=== PATIENT | female | born 1945 | race Caucasian/White ===

== ENCOUNTER 2025-02-17 09:46 | Outpatient (OUT) | payer MEDICARE, OTHER, SELFPAY ==
--- OUTSIDE RECORDS SUMMARY | 2025-02-17 09:48 | XMS_ITS | Clinical Summary ---
Author Organization [facility] Address [address] [place] [address] Care Team Providers Care Production Recovery Operator Name Role Phone Unavailable Primary Care Provider Unavailabl e Social History Tobacco Use Types Packs/Day Years Used Date Smoking Tobacco: Never Assessed [place] Safety & Environment Answer Date Rec orded Fear of Current or Ex-Partner Not on file Emotionally Abused Not on file 07/26/2023 Physically Abused Not on file 07/26/2023 Sexually Abused Not on file 07/26/2023 Physically or Sexually Abused Not on file Comments Unknown Sex and Gender Information Value Date Recorded Sex Assigned at Not on file Legal Sex Female 10:33 PM EDT Gender Identity Not on file Sexual Orientation Not on file Plan of Treatment Not on file
--- OUTSIDE RECORDS SUMMARY | 2025-02-17 09:48 | XMS_ITS | Encounter Summary ---
Author Organization [facility] Address [address] [place] [address] Care Team Providers Care Varnisher Plasticoater Name Role Phone Unavailable Primary Care Provider Unavailabl e Encounter Details Date Type Department Care Team (Late st Contact Info) Description 05/05/2024 Orders Only [facility] [address] JOANA D [address] [phone] Unallocated, Noms Provider[place] [address] Social History Tobacco Use Types Packs/Day Years Used Date Smoking Tobacco: Never Assessed Comments Unknown Sex and Gender Information Value Date Recorded Sex Assigned at Not on file Legal Sex Female 7:18 PM EDT Gender Identity Not on file Sexual Orientation Not on file documented as of this encounter Plan of Treatment Not on file documented as of this encounter Procedures Procedure Name Priority Date/Time Associated Diagnosis Comments MAMM SCREENING W CAD Routine 10/04/2022 10:49 AM EDT documented in this encounter Results * MAMM SCREENING W CAD (10/04/2022 10:49 AM EDT) Anatomical Region Laterality Modality Radiographic Isabell ging us Noms Provider Unallocated MD BLOCK XR PROCEDURES F inal Result documented in this encounter Visit Diagnoses Not on filedocumented in this encounter
--- OUTSIDE RECORDS SUMMARY | 2025-02-17 09:48 | XMS_ITS | Clinical Summary ---
Author Organization [facility] Address [address] [place] [address] Care Team Providers Care Gas Cutter Name Role Phone Unavailable Primary Care Provider Unavailabl e Family History Medical History Relation Name Comments Acute myocardial infarction Father Alzheimer's disease Father Acute myocardial infarction Mother Relation Name Status Comments Father Mother Social History Tobacco Use Types Packs/Day Years Used Date Smoking Tobacco: Never Assessed Comments Unknown Sex and Gender Information Value Date Recorded Sex Assigned at Not on file Legal Sex Female 7:18 PM EDT Gender Identity Not on file Sexual Orientation Not on file Last Filed Vital Signs Vital Sign Reading Time Taken Comments Blood Pressure 148/76 12/17/2017 12:00 PM EDT Pulse - - Temperature - - Respiratory Rate - - Oxygen Saturation - - Inhaled Oxygen Concentration - - Weight 83.9 kg (185 lb) 12/17/2017 12:00 PM EDT Height 157.5 cm (5' 2 ) 12/17/2017 12:00 PM EDT Body Mass Index 33.84 12/17/2017 12:00 PM EDT Plan of Treatment Not on file
--- OUTSIDE RECORDS SUMMARY | 2025-02-17 09:48 | XMS_ITS | Encounter Summary ---
Author Organization [facility] Address [address], [address] [place] [address] Care Team Providers Care Cook Frozen Dessert Name Role Phone Carlton Franco Primary Care Provider [phone] Encounter Details Date Type Department Care Team (Late st Contact Info) Description 07/25/2024 Orders Only [facility] [address] [place] [address] Provider, MD Brissa Social History Tobacco Use Types Packs/Day Years Used Date Smoking Tobacco: Never Smokeless Tobacco: Never Alcohol Use Standard Drinks/Week Comments Never 0 (1 standard drink = 0.6 oz pur e alcohol) [facility] Utilities Answer Date Recorded In the past 12 months has e electric, gas, oil, or water company threatened to shut off services in your home? No 07/22/2024 AUDIT-C Answer Date Recorded Q1: How often do you have a drink containing alcohol? Never 04/22/2024 Q2: How many drinks containi ng alcohol do you have on a typical day when you are drinking? Patient does not drink Q3: How often do you have si x or more drinks on one occasion? Never 04/22/2024 Overall Financial Resource Strain (CARDIA) Answe r Date Recorded How hard is it for you to pa y for the very basics like food, housing, medical care, and heating? Not hard at all 04/30/2023 PHQ-2 Answer Date Recorded PHQ-9 Total Score 6 07/22/2024 Exercise Vital Sign Answer Date Recorde d On average, how many days pe r week do you engage in moderate to strenuous exercise (like a brisk walk)? 7 days 04/22/2024 On average, how many minutes do you engage in exercise at this level? 30 min 04/22/2024 Hunger Vital Sign Answer Date Recorded Within the past 12 months, y ou worried that your food would run out before you got the money to buy more. Never true 07/22/19 25 Within the past 12 months, t he food you bought just didn't last and you didn't have money to get more. Never true 07/22/2024 PRAPARE - Transportation Answer Date Re corded In the past 12 months, has l ack of transportation kept you from medical appointments or from getting medications? No 07/05 In the past 12 months, has l ack of transportation kept you from meetings, work, or from getting things needed for daily living? No 07/22/2024 Housing Stability Vital Sign Answer Brandan e Recorded Unable to Pay for Housing in the Last Year Not o n file 04/30/2023 Number of Places Lived in the Last Year Not on f ile 04/30/2023 In the last 12 months, was t here a time when you did not have a steady place to sleep or slept in a senior care (including now)? No 04/30/2023 Housing Stability Vital Sign Answer Brandan e Recorded In the last 12 months, was t here a time when you were not able to pay the mortgage or rent on time? No 07/22/2024 In the past 12 months, how m any times have you moved where you were living? 0 07/22/2024 At any time in the past 12 m [facility], were you homeless or living in a senior care (including now)? No 07/22/2024 Food Insecurity Answer Date Recorded Within the past 12 months, y ou worried that your food would run out before you got the money to buy more. 1 07/22/2024 Within the past 12 months, t he food you bought just didn't last and you didn't have money to get more. 1 07/22/2024 Comments Unknown Sex and Gender Information Value Date Recorded Sex Assigned at Not on file Legal Sex Female 11:57 PM EST Gender Identity Not on file Sexual Orientation Not on file documented as of this encounter Plan of Treatment Upcoming Encounters Date Type Department Care Team (Late st Contact Info) Description 04/21/2025 2:30 PM EST Office Visit [facility] [address] [place] [address] Carlton Franco, [address] [place] [address] 3 mo f/u documented as of this encounter Procedures Procedure Name Priority Date/Time Associated Diagnosis Comments HM DEXA SCAN Routine 04/19/2018 2:36 PM EST documented in this encounter Results * HM DEXA SCAN (04/19/2018 2:36 PM EST) Anatomical Region Laterality Modality Other Impressions 04/19/2018 2:36 PM EST Result Details Return to Results Print RAD BD Bone Density DEXA Date Requested Date Observed Status Reported/Status Changed Priority Result Sizing Machine And Drier Operator 04/19/2018 12:51 PM 04/19/2018 12:51 PM Final 04/20/2018 2:07 PM Routine MD Pierre Muñoz Facility: [facility] ([facility]) Report ID: [id number] Specimen Source: Rad Type Admitting Provider: Carlton FRANCO Requested Date: 04/19/2018 12:51 PM Body Site: NA Attending Provider: Carlton FRANCO Ordering Provider: Carlton FRANCO Patient Class: Ambulatory BD Bone Density DEXA Exam Date/Time: 04/19/2018 13:03 EST Reason for Exam: OSETOPOROSIS Report IMPRESSION: OSTEOPENIA. CLINICAL HISTORY: Screening for osteoporosis. COMPARISON: NONE. COMMENTS: The lumbar spine and both hips were scanned. The mean bone mineral density from L1 to L4 is 1.065 g/cm2 and this value is - 1.0 standard of deviation below the standard reference value for a young adult. Bone mineral density of the left femoral neck is 0.852 g/cm2 and this value is - 1.3 standard of deviation below the standard reference value. Bone mineral density of the right femoral neck is 0.848 g/cm2 and this value is -1.4 standard of deviation below the standard reference value. These values meet WHO criteria for osteopenia. FINAL REPORT Dictated: 04/20/2018 2:04 pm Pierre Muñoz MD Signed (Electronic Signature): 04/20/2018 2:04 pm Signed by: Pierre Muñoz MD Transcribed by: DONAVON Technologist: JUDSON Performed By: NELDA us Historical Provider HEALTH MAINTENANCE Edited Result - Final documented in this encounter Visit Diagnoses Not on filedocumented in this encounter Additional Health Concerns Assessment Noted Time A fall risk assessment has been complete d for the patient 04/22/2024 2:25 PM EST documented as of this encounter Care Teams Cook Frozen Dessert Relationship Specialty Start Date End Date Carlton Franco DO [address] [place] [address] PCP - General Family Medicine 04/05/23 documented as of this encounter
--- OUTSIDE RECORDS SUMMARY | 2025-02-17 09:48 | XMS_ITS | Clinical Summary ---
Author Organization [facility] Address [address], [address] [place] [address] Care Team Providers Care Transportation Maintenance Worker Name Role Phone Carlton Franco DO Primary Care Provider [phone] Allergies Active Allergy Reactions Criticality Noted Date Comments Iodine 04/30/2023 Other reaction(s): Vomiting Latex 04/30/2023 Other reaction(s): Unknown Meperidine Hcl Shortness Of Breath High 04/30/2023 Semaglutide Other (See Comments) 11/01/2023 Medications escitalopram (LEXAPRO) 20 MG tablet TAKE 1 TABLET BY MOUTH EVERYDAY 3 Active ezetimibe (ZETIA) 10 MG tablet Take 0.5 tablets by mouth daily 1 Active pantoprazole (PROTONIX) 40 MG tablet Take 1 tablet by mouth 9 Active levothyroxine (SYNTHROID) 25 MCG tablet Take 1 tablet by mouth Daily 3 Active sacubitril-wade sartan (ENTRESTO) 24-26 MG per tablet Take 1 tablet by mouth 2 times daily Active SITagliptin (JANUVIA) 100 MG tablet Take 1 tablet by mouth daily Active insulin lispro (HUMALOG) 100 UNIT/ML SOLN injection vial Inject 3 Units into the skin as needed for High Blood Sugar (For blood sugars over 200) Active TRUE METRIX BLOOD GLUCOSE TEST strip USE DIRECTED TO TEST BLOOD SUGAR 4 Active IBGARD 90 MG CPCR Take 2 capsules by mouth 2 times daily 4 Active montelukast (SINGULAIR) 10 MG tablet Take 1 tablet by mouth daily 4 Active famotidine (PEPCID) 20 MG tablet Take 1 tablet by mouth nightly 4 Active FIASP FLEXTOUCH 100 UNIT/ML SOPN INJECT 3X'S DAILY BEFORE MEALS, 200-250 3UNITS 251-300 5UNITS 301-350 7UNITS 351-400 10U 4 Active Insulin Aspart FlexPen 100 UNIT/ML SOPN PLEASE SEE ATTACHED FOR DETAILED DIRECTIONS 5 Active metoclopramide (REGLAN) 5 MG tablet TAKE 1 TABLET BY MOUTH 3 TIMES A DAY BEFORE MEALS NEEDED FOR NAUSEA 5 Active acarbose (PRECOSE) 100 MG tablet 5 Active ALPRAZolam (XANAX) 0.5 MG tablet Take 1 tablet by mouth 2 times daily. 5 Active KERENDIA 10 MG TABS Take 1 tablet by mouth daily 5 Active RYBELSUS 3 MG TABS TAKE 1 TABLET BY MOUTH IN THE MORNING BEFORE A MEAL 4 01/29/20 25 Discontinu ed(LIST CLEANUP) ALPRAZolam (XANAX) 0.5 MG tabletIndicati ons:Situationa l anxiety Take 1 tablet by mouth in the morning and at bedtime for 90 days. Max Daily Amount: 1 mg 60 tablet 2 5 01/20/20 25 Active Problems Problem Noted Date Diagnosed Date Situational anxiety 07/31/2023 Type 2 diabetes mellitus 04/30/2023 023 Overview (04/30/2023): linked DM with HLD per outpatient CDI policy. 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 added per outpatient CDI policy. Acute situational disturbance 04/30/2023 Encounters Date Type Department Care Team Description 01/28/2025 1:30 PM EDT Office Visit [facility] [address] [place] [address] Carlton Franco, Situational anxiety (Primary Dx); Mild major depression from Last 3 Months Immunizations Immunization Administration Dates Next Due Pneumococcal, PCV-13, PREVNAR 13, (age 6w+), IM, 0.5mL 04/04/2016 Social History Tobacco Use Types Packs/Day Years Used Date Smoking Tobacco: Never Smokeless Tobacco: Never Tobacco Cessation:Counseling Given: No Alcohol Use Standard Drinks/Week Comments Never 0 (1 standard drink = 0.6 oz pur e alcohol) [facility] Utilities Answer Date Recorded In the past 12 months has e [employer], gas, oil, or water company threatened to [...] place to sleep or slept in a alf (including now)? No 04/30/2023 Housing Stability Vital Sign Answer Brandan e Recorded In the last 12 months, was t here a time when you were not able to pay the mortgage or rent on time? No 07/22/2024 In the past 12 months, how m any times have you moved where you were living? 0 07/22/2024 At any time in the past 12 m [facility], were you homeless or living in a alf (including now)? No 07/22/2024 AUDIT-C Answer Date Recorded Q1: How often do you have a drink containing alcohol? Never 01/28/2025 Q2: How many drinks containi ng alcohol do you have on a typical day when you are drinking? Patient does not drink Q3: How often do you have si x or more drinks on one occasion? Never 01/28/2025 Food Insecurity Answer Date Recorded Within the [...] Sign Reading Time Taken Comments Blood Pressure 124/76 01/28/2025 1:38 PM EDT Pulse 90 01/28/2025 1:38 PM EDT Temperature 36.2 C (97.2 F) 01/28/2025 1:38 PM EDT Respiratory Rate - - Oxygen Saturation 98% 01/28/2025 1:38 PM EDT Inhaled Oxygen Concentration - - Weight 75.9 kg (167 lb 6.4 oz) 01/28/2025 1:38 P M EDT Height 157.5 cm (5' 2 ) 01/28/2025 1:38 PM EDT Body Mass Index 30.62 01/28/2025 1:38 PM EDT Plan of Treatment Upcoming Encounters Date Type Department Care Team (Late st Contact Info) Description 04/21/2025 2:30 PM EST Office Visit [facility] [address] [place] [address] Carlton Franco, [address] [place] [address] 3 mo f/u Health Maintenance Due Date Last Done Comments Diabetic Alb to Cr ratio (uACR) test 12/03/1965 GFR test (Diabetes, CKD 3-4, OR last GFR 15-59) 12/03/1965 Hepatitis C screen 12/03/1965 DTaP/Tdap/Td vaccine (1 - Tdap) 12/03/1966 Shingles vaccine (1 of 2) 12/03/1997 Pneumococcal 50+ years Vaccine (2 of 2 - PPSV23, PCV20, or PCV21) 05/30/2016 04/04/2016 Respiratory Syncytial Virus (RSV) or age 60 yrs+ (1 - 1-dose 75+ series) 12/03/2022 Breast cancer screen 10/04/2024 10/04/2022 Flu vaccine (#1) 01/02/2025 COVID-19 Vaccine (1 - 2023-2 5 season) 2025 Annual Wellness Visit (Medicare) 04/23/2025 04/22/2024 Depression Monitoring 07/22/2025 07/22/2024 , 07/22/2024 DEXA (modify frequency per FRAX score) Completed 04/19/2018 A1C test (Diabetic or Prediabetic) Discontinued 12/15/2022, 12/15/2022, 06/13/2022 Lipids Discontinued 06/20/2023 Depression Screen Discontinued 07/22/2024, 07/22/2024 Hepatitis A vaccine Aged Out No longe r eligible based on patient's age to complete this topic Hepatitis B vaccine Aged Out No longe r eligible based on patient's age to complete this topic Hib vaccine Aged Out No longer eligi ble based on patient's age to complete this topic Meningococcal (ACWY) vaccine Aged Out No longer eligible based on patient's age to complete this topic Meningococcal B vaccine Aged Out No l onger eligible based on patient's age to complete this topic Polio vaccine Aged Out No longer elig ible based on patient's age to complete this topic Procedures Procedure Name Priority Date/Time Associated Diagnosis Comments LIPID PANEL Routine 06/20/2023 4:46 PM EST HEMOGLOBIN A1C Routine 12/15/2022 HM MAMMOGRAPHY Routine 10/04/2022 HM DEXA SCAN Routine 04/19/2018 2:36 PM EST from Last 3 Months or Most Recently Relevant to Health Maintenance Results * Lipid Panel (06/20/2023 4:46 PM EST) Blood BLOOD SPECIMEN / Unknown Carlton Franco DO CHEMISTRY ORDERABLES Final Re sult * Hemoglobin A1C (12/15/2022) BLOOD SPECIMEN / Unknown Carlton Franco DO CHEMISTRY ORDERABLES Final Re sult * HM MAMMOGRAPHY (10/04/2022) Anatomical Region Laterality Modality Other Carlton Franco DO HEALTH MAINTENANCE Final Resu lt * HM DEXA SCAN (04/19/2018 2:36 PM EST) Anatomical Region Laterality Modality Other Impressions 04/19/2018 2:36 PM EST Result Details Return to Results Print RAD BD Bone Density DEXA Date Requested Date Observed Status Reported/Status Changed Priority Result Drafter Electromechanical 04/19/2018 12:51 PM 04/19/2018 12:51 PM Final 04/20/2018 2:07 PM Routine MD Pierre Muñoz Facility: [facility] ([facility]) Report ID: [id number] Specimen Source: Rad Type Admitting Provider: Carlton [...] Pierre Muñoz MD Transcribed by: DONAVON Technologist: CC Performed By: NELDA Noonan Historical Provider HEALTH MAINTENANCE Edited Result - Final from Last 3 Months or Most Recently Relevant to Health Maintenance Insurance MEDICARE [employer] MEDICARE SUPP Advance Directives Healthcare Agents on File Name Relationship Healthcare Agent Relationshi p Communication Rico Franco Spouse Primary Decision Maker Nisa Hebert Secondary Decision Maker Care Teams Transportation Maintenance Worker Relationship Specialty Start Date End Date Carlton Franco DO [address] [place], [place] [id number] PCP - General Family Medicine 04/05/23
--- OUTSIDE RECORDS SUMMARY | 2025-02-17 09:48 | XMS_ITS | Encounter Summary ---
Author Organization [facility] Address [address], [address] [place] [address] Care Team Providers Care Director Recreation Center Name Role Phone Carlton Robles Primary Care Provider Encounter Details Date Type Department Care Team (Late st Contact Info) Description 05/15/2023 Orders Only [facility] [address] [place], [place] [id number] Provider, MD Brissa Social History Tobacco Use Types Packs/Day Years Used Date Smoking Tobacco: Never Smokeless Tobacco: Never Alcohol Use Standard Drinks/Week Comments Never 0 (1 standard drink = 0.6 oz pur e alcohol) Overall Financial Resource Strain (CARDIA) Answe r Date Recorded How hard is it for you to pa y for the very basics like food, housing, medical care, and heating? Not hard at all 04/30/2023 PHQ-2 Answer Date Recorded PHQ-9 Total Score 0 04/30/2023 Hunger Vital Sign Answer Date Recorded Within the past 12 months, y ou worried that your food would run out before you got the money to buy more. Never true 04/30/20 23 Within the past 12 months, t he food you bought just didn't last and you didn't have money to get more. Never true 04/30/2023 PRAPARE - Transportation Answer Date Re corded Lack of Transportation (Medical) Not on file 04/30/2023 In the past 12 months, has l ack of transportation kept you from meetings, work, or from getting things needed for daily living? No 04/30/2023 Housing Stability Vital Sign Answer Brandan e Recorded Unable to Pay for Housing in the Last Year Not o n file 04/30/2023 Number of Places Lived in the Last Year Not on f ile 04/30/2023 In the last 12 months, was t here a time when you did not have a steady place to sleep or slept in a long term (including now)? No 04/30/2023 Food Insecurity Answer Date Recorded Within the past 12 months, y ou worried that your food would run out before you got the money to buy more. 1 04/30/2023 Within the past 12 months, t he food you bought just didn't last and you didn't have money to get more. 1 04/30/2023 Comments Unknown Sex and Gender Information Value Date Recorded Sex Assigned at Not on file Legal Sex Female 11:57 PM EST Gender Identity Not on file Sexual Orientation Not on file documented as of this encounter Plan of Treatment Upcoming Encounters Date Type Department Care Team (Late st Contact Info) Description 04/21/2025 2:30 PM EST Office Visit [facility] [address] [place] [address] Carlton Robles DO [address] [place] [address] 3 mo f/u documented as of this encounter Procedures Procedure Name Priority Date/Time Associated Diagnosis Comments HEMOGLOBIN A1C Routine 06/13/2022 12:42 PM EST documented in this encounter Results * Hemoglobin A1C (06/13/2022 12:42 PM EST) Blood BLOOD SPECIMEN / Unknown us Historical Provider CHEMISTRY ORDERABLES Gina l Result documented in this encounter Visit Diagnoses Not on filedocumented in this encounter Additional Health Concerns Assessment Noted Time A fall risk assessment has been complete d for the patient 04/30/2023 1:29 PM EST documented as of this encounter Care Teams Director Recreation Center Relationship Specialty [place] [address] [place] [id number] PCP - General Family Medicine 04/05/23 documented as of this encounter
--- NOTE | 2025-02-17 09:51 | MM_ITS ---
Patient Name: MARLYN FRANCO MR#: [id number] : 1945 Exam Date: 02/17/2025 Ordering Doctor: DR JESSICA VENEGAS D.O. RADIOLOGY REPORT PROCEDURE: MM TOMOSYNTHESIS SCREENING BI COMPARISON: MG MAMM SCREEN 3D SHARMIN CAD, 10/04/2022. MG MAMM SCREEN 3D SHARMIN CAD, 09/22/2021. MG MAMM SCREEN SHARMIN W CAD, 07/27/2020. MG MAMM SHARMIN SCRN W CAD DIG, 03/07/2013. INDICATIONS: Sceening Calculator Name NCI Breast Cancer Risk Assessment Tool 5 Year Breast Cancer Risk 1.40% Lifetime Breast Cancer Risk 2.70% Personal Breast Cancer No Personal Ovarian Cancer No Treatments None Family Cancers None LOCATION: [facility] BREAST COMPOSITION: There are scattered areas of fibroglandular density. FINDINGS: RIGHT BREAST: No significant suspicious finding. LEFT BREAST: No significant suspicious finding. DIAGNOSTIC CATEGORY 1--NEGATIVE. RECOMMENDATIONS: ROUTINE MAMMOGRAM AND CLINICAL EVALUATION IN 12 MONTHS. Dictated by: Landon Green MD on 02/17/2025 at 12:11 Approved by: Landon Green MD on 02/17/2025 at 12:14
== END 2025-02-17 09:47 | disposition home or self-care (01) ==
LOC: MAMMO 09:46
PROVIDERS: PCP Family Medicine; Visit Provider Internal Medicine
DX: Z12.31 Encounter for screening mammogram for malignant neoplasm of breast (principal); Z78.0 Asymptomatic menopausal state; M85.80 Other specified disorders of bone density and structure, unspecified site
CPT/HCPCS: 77063; 77067; 77080